=== PATIENT | female | born 1940 | race Caucasian/White ===

== ENCOUNTER 2022-03-27 15:00 | Outpatient (RCR) | payer MEDICARE, OTHER | END 2022-04-08 | LOC: M PT 15:00 | PROVIDERS: ATTEND Nurse Practitioner Family | DX: I89.0 Lymphedema, not elsewhere classified (principal) ==

== ENCOUNTER 2022-05-08 11:51 | Outpatient (RCR) | payer MEDICARE, OTHER | END 2022-05-09 | LOC: M PT 11:51 | PROVIDERS: ATTEND Nurse Practitioner Family | DX: I89.0 Lymphedema, not elsewhere classified (principal) ==

== ENCOUNTER 2022-05-23 13:24 | Outpatient (RCR) | payer MEDICARE, OTHER | END 2022-06-06 | LOC: M PT 13:24 | PROVIDERS: ATTEND Nurse Practitioner Family | DX: I89.0 Lymphedema, not elsewhere classified (principal) ==

== ENCOUNTER → 2023-08-03 | Outpatient (CLI) | payer MEDICARE, OTHER ==
[2023-08-03 12:58] LABS: BASO # 0.1 10^3/uL (0.0-0.2); BASO % 0.7 % (0.0-1.0); EOS # 0.2 10^3/uL (0.0-0.5); EOS % 2.5 % (0.0-3.0); HEMATOCRIT 45.9 % (36.0-47.0); HEMOGLOBIN 14.5 g/dl (12.0-15.5); LYMPH # 2.5 10^3/uL (1.5-5.0); LYMPH % 33.6 % (24.0-44.0); MEAN CORPUSCULAR HEMOGLOBIN 32.7 pg (27.0-33.0); MEAN CORPUSCULAR HGB CONC 31.6 g/dl (32.0-36.5); MEAN CORPUSCULAR VOLUME 103.4 fl (80.0-96.0); MONO # 0.7 10^3/uL (0.0-0.8); MONO % 9.3 % (2.0-8.0); NEUTROPHILS % 53.8 % (36.0-66.0); PLATELET COUNT, AUTOMATED 175 10^3/uL (150-450); RED BLOOD COUNT 4.44 10^6/uL (4.00-5.40); WHITE BLOOD COUNT 7.5 10^3/uL (4.0-10.0)
[2023-08-03 13:55] LABS: ALKALINE PHOSPHATASE 104 U/L (46-116); ALT/SGPT 16 U/L (7.0-40); AST/SGOT 24 U/L (<34); BILIRUBIN,TOTAL 0.6 MG/DL (0.3-1.2); BLOOD UREA NITROGEN 31 MG/DL (9-23); CARBON DIOXIDE LEVEL 32 MMOL/L (20-31); CHLORIDE LEVEL 104 MMOL/L (98-107); CREATININE FOR GFR 0.87 MG/DL (0.55-1.30); FERRITIN 331.4 NG/ML (7.3-270.7); GLOMERULAR FILTRATION RATE > 60.0 (>32); GLUCOSE, FASTING 86 MG/DL (74-106); IRON (FE) 134 UG/DL (50-170); PERCENT SATURATION 47.5 % (13.2-45.0); POTASSIUM SERUM 5.4 MMOL/L (3.5-5.1); SODIUM LEVEL 141 MMOL/L (136-145); THYROID STIMULATING HORMONE 2.124 uIU/ML (0.55-4.78); TOTAL IRON BINDING CAPACITY 282 UG/DL (250-425); TOTAL PROTEIN 7.1 G/DL (5.7-8.2)
[2023-08-03 13:56] LABS: FREE T4 1.23 NG/DL (0.89-1.76)
[2023-08-03 13:57] LABS: VITAMIN B12 LEVEL 1707 PG/ML (211-911)
[2023-08-11 15:10] LABS: ZINC PLASMA 68 ug/dL (44-115)
== END ==
LOC: M LAB 11:36
PROVIDERS: ATTEND Physician Assistant
DX: L29.9 Pruritus, unspecified (principal); Z79.899 Other long term (current) drug therapy